=== PATIENT | female | born 1945 | race Caucasian/White ===

== ENCOUNTER 2016-06-21 07:29 | Day surgery (SDC) | payer BC ==
--- NOTE | ~2016-06-21 | EGD ---
EGD REPORT [facility] [address] [address] NAME: DAPHNEY RAMIREZ : [birth year] STATUS : [place] [facility] [place] PAT#: [id number] AGE: 70 ADM/REG DATE : 06/21/16 MR#: [id number] REPORT SERV DATE: 06/21/16 DICTATED BY: RENEE WATTERS DATE: 06/21/16 REPORT STATUS : Draft TRANSCRIBED BY: [facility] DATE: 06/21/16 Endoscopy Center Patient Name: Daphney Ramirez Date of : 1945 Attending MD: RENEE WATTERS, Procedure Date No Time: 06/21/2016 Procedure: Upper GI endoscopy Indications: Dysphagia Referring MD: Marychuy Adame Medicines: Monitored Anesthesia Care Complications: No immediate complications. Estimated blood loss: None. Procedure: Pre-Anesthesia Assessment: - ASA Grade Assessment: III - A patient with severe systemic disease. After obtaining informed consent, the endoscope was passed under direct vision. Throughout the procedure, the patient's blood pressure, pulse, and oxygen saturations were monitored continuously. The GIF [id number] was introduced through the mouth, and advanced to the second part of duodenum. The upper GI endoscopy was accomplished without difficulty. The patient tolerated the procedure well. Findings: The examined esophagus was normal. Multiple biopsies were obtained in the upper third of the esophagus and in the middle third of the esophagus with cold forceps for histology. A guidewire was placed and the scope was withdrawn. Dilation was performed with a Savary dilator with no resistance at 45 Fr. The stomach was normal. The cardia and gastric fundus were normal on retroflexion. The examined duodenum was normal. Impression: - Normal esophagus. Dilated. - Normal stomach. - Normal examined duodenum. - Multiple biopsies were obtained in the upper third of the esophagus and in the middle third of the esophagus. Recommendation: - Patient has a contact number available for emergencies. The signs and symptoms of potential delayed complications were discussed with the patient. Return to normal activities tomorrow. Written discharge instructions were provided to the patient. - Return to previous diet. EGD REPORT [address] [address] NAME: DAPHNEY RAMIREZ : [birth year] STATUS : REG [facility]#: [id number] AGE: 70 ADM/REG DATE : 06/21/16 MR#: [id number] REPORT SERV DATE: 06/21/16 DICTATED BY: RENEE WATTERS DATE: 06/21/16 REPORT STATUS : Draft TRANSCRIBED BY: [email or web address] DATE: 06/21/16 - Await pathology results. - Continue present medications. Procedure Code(s): --- Professional --- 15274, Esophagogastroduodenoscopy, flexible, transoral; with insertion of guide wire followed by passage of dilator(s) through esophagus over guide wire 48475, Esophagogastroduodenoscopy, flexible, transoral; with biopsy, single or multiple Diagnosis Code(s): --- Professional --- R13.10, Dysphagia, unspecified CPT copyright 2013 [employer]. All rights reserved. The codes documented in this report are preliminary and upon flight communications officer review may be revised to meet current compliance requirements. RENEE WATTERS, 06/21/2016 9:40 AM Number of Addenda: 0 Note Initiated On: 06/21/2016 8:41 AM Scope Withdrawal Time 0 hours 0 minutes 0 seconds [address] [place] [address]
--- NOTE | ~2016-06-21 | EGD ---
EGD REPORT [facility] [address] [address] NAME: DAPHNEY RAMIREZ : [birth year] STATUS : REG [facility] [place] PAT#: [id number] AGE: 70 ADM/REG DATE : 06/21/16 MR#: [id number] REPORT SERV DATE: 06/21/16 DICTATED BY: RENEE WATTERS DATE: 06/21/16 REPORT STATUS : Draft TRANSCRIBED BY: [employer] DATE: 06/21/16 Endoscopy Center Patient Name: Daphney Ramirez Date of : 1945 Attending MD: RENEE WATTERS, Procedure Date No Time: 06/21/2016 Procedure: Colonoscopy Indications: High risk colon cancer surveillance: Personal history of colonic polyps Referring MD: Marychuy Adame Medicines: Monitored Anesthesia Care Complications: No immediate complications. Estimated blood loss: None. Procedure: Pre-Anesthesia Assessment: - ASA Grade Assessment: III - A patient with severe systemic disease. After I obtained informed consent, the scope was passed under direct vision. Throughout the procedure, the patient's blood pressure, pulse, and oxygen saturations were monitored continuously. The [id number] was introduced through the anus and advanced to the cecum, identified by appendiceal orifice and ileocecal valve. The colonoscopy was performed without difficulty. The patient tolerated the procedure well. The quality of the bowel preparation was good. Findings: The perianal and digital rectal examinations were normal. A sessile polyp was found in the ascending colon. The polyp was 2 mm in size. The polyp was removed with a cold biopsy forceps. Resection and retrieval were complete. Verification of patient identification for the specimen was done. Estimated blood loss was minimal. A sessile polyp was found in the transverse colon. The polyp was 2 mm in size. The polyp was removed with a cold biopsy forceps. Resection and retrieval were complete. Verification of patient identification for the specimen was done. Estimated blood loss was minimal. A pedunculated polyp was found in the sigmoid colon. The polyp was 6 mm in size. The polyp was removed with a cold snare. Resection and retrieval were complete. Verification of patient identification for the specimen was done. Estimated blood loss was minimal. Multiple small-mouthed diverticula were found in the sigmoid colon and in the descending colon. Internal hemorrhoids were found during retroflexion and were Grade I (internal hemorrhoids that do not prolapse). The exam was otherwise without abnormality on direct and retroflexion views. EGD REPORT [address] [place]. [address] NAME: DAPHNEY RAMIREZ : [birth year] STATUS : REG [facility] [place] PAT#: [id number] AGE: 70 ADM/REG DATE : 06/21/16 MR#: [id number] REPORT SERV DATE: 06/21/16 DICTATED BY: RENEE WATTERS DATE: 06/21/16 REPORT STATUS : Draft TRANSCRIBED BY: [email or web address] DATE: 06/21/16 Impression: - One 2 mm polyp in the ascending colon. Resected and retrieved. - One 2 mm polyp in the transverse colon. Resected and retrieved. - One 6 mm polyp in the sigmoid colon. Resected and retrieved. - Diverticulosis in the sigmoid colon and in the descending colon. - Internal hemorrhoids. - The examination was otherwise normal on direct and retroflexion views. Recommendation: - Patient has a contact number available for emergencies. The signs and symptoms of potential delayed complications were discussed with the patient. Return to normal activities tomorrow. Written discharge instructions were provided to the patient. - Return to previous diet. - Continue present medications. - Await pathology results. - Repeat colonoscopy for surveillance based on pathology results. - Return to GI office PRN. Procedure Code(s): --- Professional --- 69771, Colonoscopy, flexible, proximal to splenic flexure; with removal of tumor(s), polyp(s), or other lesion(s) by snare technique 99389, 59, Colonoscopy, flexible, proximal to splenic flexure; with biopsy, single or multiple Diagnosis Code(s): --- Professional --- D12.5, Benign neoplasm of sigmoid colon D12.3, Benign neoplasm of transverse colon D12.2, Benign neoplasm of ascending colon K64.0, First degree hemorrhoids K57.30, Diverticulosis of large intestine without perforation or abscess without bleeding Z86.010, Personal history of colonic polyps CPT copyright 2013 [employer]. All rights reserved. The codes documented in this report are preliminary and upon pull through hooker review may be revised to meet current compliance requirements. EGD REPORT [facility] [address] [address] NAME: DAPHNEY RAMIREZ : [birth year] STATUS : REG [facility] [place] PAT#: [id number] AGE: 70 ADM/REG DATE : 06/21/16 MR#: [id number] REPORT SERV DATE: 06/21/16 DICTATED BY: RENEE WATTERS DATE: 06/21/16 REPORT STATUS : Draft TRANSCRIBED BY: [email or web address] DATE: 06/21/16 RENEE WATTERS 06/21/2016 9:42 AM Number of Addenda: 0 Note Initiated On: 06/21/2016 8:58 AM Scope Withdrawal Time 0 hours 14 minutes 16 seconds [address] [id number]
[~2016-06-21 07:29] MED LIST: AMARYL2 PO; AMARYL4 PO; ATV.5 PO; LISINOPRIL40 MG PO; PREV30 PO; PRILO PO; PRIN20 PO
== END 2016-06-21 23:59 | disposition home health service (06) ==
LOC: DMU 07:29
PROVIDERS: Internal Medicine Gastroenterology
PROC: 0D728ZZ Dilation of Middle Esophagus, Via Natural or Artificial Opening Endoscopic (ICD-10-PCS; 2016-06-21)
PROC: 0DBK8ZX Excision of Ascending Colon, Via Natural or Artificial Opening Endoscopic, Diagnostic (ICD-10-PCS; principal; 2016-06-21 09:00)
PROC: 0DBL8ZX Excision of Transverse Colon, Via Natural or Artificial Opening Endoscopic, Diagnostic (ICD-10-PCS; 2016-06-21 09:00)
PROC: 0DBN8ZZ Excision of Sigmoid Colon, Via Natural or Artificial Opening Endoscopic (ICD-10-PCS; 2016-06-21 09:00)
PROC: 0DB28ZX Excision of Middle Esophagus, Via Natural or Artificial Opening Endoscopic, Diagnostic (ICD-10-PCS; 2016-06-21 09:00)
DX: D12.3 Benign neoplasm of transverse colon (principal); D12.5 Benign neoplasm of sigmoid colon; K64.0 First degree hemorrhoids; K57.30 Diverticulosis of large intestine without perforation or abscess without bleeding; I10 Essential (primary) hypertension; M19.90 Unspecified osteoarthritis, unspecified site; K21.9 Gastro-esophageal reflux disease without esophagitis; E11.9 Type 2 diabetes mellitus without complications; Z86.010 Personal history of colon polyps; Z90.710 Acquired absence of both cervix and uterus; Z88.8 Allergy status to other drugs, medicaments and biological substances
CPT/HCPCS: 82962; 88305; J2405